=== PATIENT | female | born 1990 | race Caucasian/White ===

== ENCOUNTER → 2017-04-09 | Outpatient (CLI) | payer MEDICAID ==
[~2017-04-09] MED LIST: CIPRO 500MG TA500 MG PO; CITALOPRAM HYDR20 MG PO; DEPO-PROVER150 MG/M1 IM; DEPRESSION PILL OR; KEFLEX 250MG.250 MG PO; KEFLEX 500MG.500 MG PO; MEDROL 4MG. DOSE4 MG PO; MOTRIN400 MG PO; PROZAC 20MG CAP20 MG PO; TRAZODONE100 MG PO
[2017-04-09 16:18] LABS: HEMOGLOBIN 15.7 g/dL (12.2-16.2); LYMPH # 2.4 K/mm3 (0.7-4.5)
[2017-04-09 17:48] LABS: BUN 7 mg/dL (7-18)
[2017-04-09 18:02] LABS: GFR (ESTIMATED) 68 ML/MIN (59-)
[2017-04-11 09:38] LABS: HBsAg Screen Negative (Negative); Hep A Ab, IgM Negative (Negative); Hep B Core Ab, IgM Negative (Negative); Hep C Virus Ab <0.1 (0.0-0.9)
== END ==
LOC: LAB 15:59
PROVIDERS: Nurse Practitioner Family
DX: Z00.00 Encounter for general adult medical examination without abnormal findings (principal); F31.9 Bipolar disorder, unspecified